=== PATIENT | male | born 1935 | race Caucasian/White ===

== ENCOUNTER 2024-03-28 14:54 | Inpatient (IN) | payer MEDICARE, BC ==
[~2024-03-28] VITALS: Ht 170.2 cm; Wt 88.5 kg
[2024-03-28] MEDS ORDERED: CEFAZOLIN 1 G VIAL ONE (16:33)
[2024-03-28 16:45] LABS: BASOPHILS # (AUTO) 0.1 K/UL (0.0-0.2); BASOPHILS % (AUTO) 0.6 % (0.0-2.0); DIFFERENTIAL COMMENT 0; EOSINOPHILS # (AUTO) 0.3 K/uL (0.0-0.7); EOSINOPHILS % (AUTO) 2.9 % (0.0-7.0); HEMATOCRIT 29.9 % (36.7-47.1); HEMOGLOBIN 9.8 g/dL (12.5-16.3); LYMPHOCYTES # (AUTO) 0.9 K/uL (0.8-4.8); LYMPHOCYTES % (AUTO) 10.5 % (20.5-51.5); MEAN CORPUSCULAR HEMOGLOBIN 31.4 uug (23.8-33.4); MEAN CORPUSCULAR HGB CONC 33 g/dL (32.5-36.3); MEAN CORPUSCULAR VOLUME 96.2 fL (73.0-96.2); MONOCYTES # (AUTO) 0.7 K/uL (0.1-1.30); MONOCYTES % (AUTO) 7.9 % (0.0-11.0); NEUTROPHILS % (AUTO) 78.1 % (38.5-71.5); PLATELET COUNT (AUTO) 311 K/uL (152-348); RED BLOOD CELL COUNT(AUTO) 3.11 MIL/uL (4.06-5.63); RED CELL DISTRIBUTION WIDTH 17.8 % (12.1-16.2)
[2024-03-28] MEDS: CEFAZOLIN 1 G in IV DEXTROSE 5% 50 ML IV ONE (16:50)
[2024-03-28 16:53] LABS: CALCIUM 8.9 mg/dL (8.5-10.1); CARBON DIOXIDE 33 mmol/L (21-32); CHLORIDE 104 mmol/L (98-107); CREATININE 1.5 mg/dL (0.6-1.3); GLUCOSE 183 mg/dL (74-106); POTASSIUM 3.8 mmol/L (3.5-5.1); SODIUM SERUM 143 mmol/L (136-145); UREA NITROGEN, BLOOD 21 mg/dL (7-18)
[2024-03-28 17:06] LABS: ALANINE AMINOTRANSFERASE 35 U/L (16-63); ALBUMIN 2.8 g/dL (3.4-5.0); ALKALINE PHOSPHATASE 119 U/L (50-136); ASPARTATE AMINOTRANSFERASE 17 U/L (15-37); BILIRUBIN,DIRECT 0.2 mg/dL (0.0-0.2); BILIRUBIN,TOTAL 0.4 mg/dL (0.2-1.0); NT-PRO BNP 5264 pg/mL (0-125); TOTAL PROTEIN, SERUM 6.8 g/dL (6.4-8.2)
[2024-03-28] MEDS ORDERED: ACETAMINOPHEN 325 MG TABLET PO PRN (21:30)
[2024-03-28] MEDS ORDERED: DEXTROSE 50% 50 ML DISP.SYRIN IV PRN (21:30)
[2024-03-28] MEDS ORDERED: ONDANSETRON 4 MG/2 ML VIAL IV PRN (21:30)
[2024-03-28 21:44] VITALS: BP 171/59; TEMP 97.9; O2SAT 100
[2024-03-28 23:07] LABS: *BILIRUBIN,URIN NEGATIVE (NEGATIVE); *BLOOD, URINE NEGATIVE (NEGATIVE); *CLARITY,URINE CLEAR (CLEAR); *COLOR,URINE YELLOW (YELLOW); *KETONES,URINE NEGATIVE (NEGATIVE); *PROTEIN,URINE 1+ (NEGATIVE); *UROBILINOGEN,URINE 0.2 E.U./dl (NORMAL); LEUKOCYTE ESTERASE ,URINE NEGATIVE (NEGATIVE); NITRITE, URINE NEGATIVE (NEGATIVE); PH,URINE 5.5 (5.0-8.0); UGLUCOSE NEGATIVE (NEGATIVE)
[2024-03-28] MEDS: HEPARIN SODIUM,PORCINE 5,000 UNITS/ML VIAL SQ SCH (23:07)
[2024-03-28] MEDS: GUAIFENESIN/DEXTROMETHORPHAN 5 ML UDC PO PRN (23:42)
[2024-03-28 23:48] LABS: BACTERIA,URINE FEW /HPF (NONE SEEN); RBC,URINE 0-3 /HPF (0-3); SQUAMOUS EPITHELIAL CELL,UR NONE SEEN /HPF (NONE SEEN); WBC,URINE 0-3 /HPF (0-3)
[2024-03-28 23:49] LABS: CALCIUM OXALATE CRYSTALS,UR MODERATE /HPF (NONE SEEN); URIC ACID CRYSTALS,URINE FEW /HPF (NONE SEEN)
[2024-03-29] VITALS (8 sets, daily range): BP systolic 124–157; BP diastolic 49–57; TEMP 97.9–98.9; O2SAT 94–100
[2024-03-29] MEDS ORDERED: BUMETANIDE 1 MG/4 ML VIAL ONE ×2 (00:21→00:23)
[2024-03-29] MEDS ORDERED: VANCOMYCIN HCL 500 MG VIAL ONE (00:22)
[2024-03-29] MEDS: VANCOMYCIN HCL 1,500 MG in IV DEXTROSE 5% 500 ML IV ONE (00:42)
[2024-03-29] MEDS: BUMETANIDE INJ 3 MG in IV DEXTROSE 5% 38 ML IV ONE (03:01)
[2024-03-29] MEDS: PANTOPRAZOLE SODIUM 40 MG TABLET.DR PO SCH (06:11)
[2024-03-29] MEDS: BLOOD SUGAR DIAGNOSTIC 1 EACH STRIP VI SCH (06:34)
[2024-03-29 07:14] LABS: IRON, SERUM 27 ug/dL (50-175)
[2024-03-29 07:19] LABS: CALCIUM 9.1 mg/dL (8.5-10.1); CARBON DIOXIDE 31 mmol/L (21-32); CHLORIDE 103 mmol/L (98-107); CHOLESTEROL 121 mg/dL (<200); CREATININE 1.5 mg/dL (0.6-1.3); FERRITIN 649 ng/mL (26-388); GLUCOSE 187 mg/dL (74-106); HDL CHOLESTEROL 57 mg/dL (40-60); POTASSIUM 3.9 mmol/L (3.5-5.1); SODIUM SERUM 142 mmol/L (136-145); TRIGLYCERIDES 94 MG/DL (30-150); UREA NITROGEN, BLOOD 21 mg/dL (7-18)
[2024-03-29 07:38] LABS: BASOPHILS # (AUTO) 0.1 K/UL (0.0-0.2); BASOPHILS % (AUTO) 0.6 % (0.0-2.0); DIFFERENTIAL COMMENT 0; EOSINOPHILS # (AUTO) 0.2 K/uL (0.0-0.7); EOSINOPHILS % (AUTO) 2.3 % (0.0-7.0); HEMATOCRIT 30.6 % (36.7-47.1); HEMOGLOBIN 10.2 g/dL (12.5-16.3); LYMPHOCYTES # (AUTO) 1.3 K/uL (0.8-4.8); LYMPHOCYTES % (AUTO) 12.3 % (20.5-51.5); MEAN CORPUSCULAR HGB CONC 33 g/dL (32.5-36.3); MEAN CORPUSCULAR VOLUME 96.3 fL (73.0-96.2); MONOCYTES # (AUTO) 0.9 K/uL (0.1-1.30); MONOCYTES % (AUTO) 8.8 % (0.0-11.0); NEUTROPHILS # (AUTO) 8.2 K/uL (1.8-8.9); PLATELET COUNT (AUTO) 344 K/uL (152-348); RED BLOOD CELL COUNT(AUTO) 3.18 MIL/uL (4.06-5.63); RED CELL DISTRIBUTION WIDTH 17.1 % (12.1-16.2); WHITE BLOOD COUNT (AUTO) 10.7 K/uL (3.6-10.2)
[2024-03-29] MEDS: INSULIN REGULAR, HUMAN 1000 UNIT/10 ML VIAL SQ PRN (08:00)
[2024-03-29] MEDS: FUROSEMIDE 40 MG/4 ML VIAL IV SCH (09:32)
[2024-03-29] MEDS: CLOPIDOGREL 75 MG TABLET PO SCH (09:32)
[2024-03-29] MEDS: ASPIRIN 81 MG TAB.CHEW PO SCH (09:32)
[2024-03-29] MEDS ORDERED: BLOO-360 IN (16:04)
[2024-03-29] MEDS ORDERED: ASCO-375 PO (16:04)
[2024-03-29] MEDS ORDERED: ASPI-1101 PO (16:05)
[2024-03-29] MEDS ORDERED: CLOP75TA33 PO (16:06)
[2024-03-29] MEDS ORDERED: CHOL400T32 PO (16:06)
[2024-03-29] MEDS ORDERED: CYAN-51 PO (16:07)
[2024-03-29] MEDS ORDERED: GUAI5SYR PO (16:08)
[2024-03-29] MEDS ORDERED: FERR325T6 PO (16:09)
[2024-03-29] MEDS ORDERED: FLUT16SP NS (16:10)
[2024-03-29] MEDS ORDERED: FOLI0.4T6 PO (16:11)
[2024-03-29] MEDS ORDERED: METO25TA6 PO (16:12)
[2024-03-29] MEDS ORDERED: BUDE1AMP2 IH (16:13)
[2024-03-29] MEDS ORDERED: IPRA3AMP23 IH (16:15)
[2024-03-29] MEDS ORDERED: ROPI0.5T4 PO (16:16)
[2024-03-29] MEDS ORDERED: MONT10TA22 PO (16:17)
[2024-03-29] MEDS ORDERED: ROSU5TAB PO (16:17)
[2024-03-29] MEDS ORDERED: PANT40TA49 PO (16:18)
[2024-03-29] MEDS ORDERED: POTA10TA21 PO (16:19)
[2024-03-29] MEDS ORDERED: BUDE90AE IH (16:20)
[2024-03-29] MEDS ORDERED: INSU3INS6 SQ ×2 (16:23→16:24)
[2024-03-29] MEDS ORDERED: TIRZEPATIDE SQ (16:23)
[2024-03-29] MEDS ORDERED: BENZ-13 PO (16:25)
[2024-03-29] MEDS ORDERED: GUAI600T53 PO (16:25)
[2024-03-29] MEDS ORDERED: FURO20TA4 PO (16:28)
[2024-03-29] MEDS ORDERED: AMIO100T4 PO (16:29)
[2024-03-29] MEDS ORDERED: ALBUTEROL SULFATE 8 GM HFA.AER.AD IH PRN (17:15)
[2024-03-29] MEDS: MONTELUKAST SODIUM 10 MG TABLET PO SCH (19:03)
[2024-03-29] MEDS: FLUTICASONE PROP NASAL SPRAY 16 GM BOTTLE NS SCH (19:03)
[2024-03-29] MEDS: MUPIROCIN 2% OINT 22 GM TUBE NS SCH (21:09)
[2024-03-29] MEDS: ATORVASTATIN 10 MG TABLET PO SCH (21:09)
[2024-03-29] MEDS: METOPROLOL TARTRATE 25 MG TABLET PO SCH (21:10)
[2024-03-30] VITALS (7 sets, daily range): BP systolic 121–152; BP diastolic 50–89; TEMP 97.6–98.1; O2SAT 92–100
[2024-03-30] MEDS: VANCOMYCIN IV 1,250 MG in IV DEXTROSE 5% 250 ML IV SCH (02:43)
[2024-03-30 06:15] LABS: ABG BASE EXCESS 8.8 mmol/L (-2.0-3.0); ABG HCO3 33.4 mmol/L (21.0-28.0); ABG PCO2 46.4 mmHg (35.0-48.0); ABG PH 7.475 (7.350-7.450); ABG PO2 52.3 mmHg (83.0-108.0); ABG SITE RIGHT RADIAL; ABG TOTAL HEMOGLOBIN 10.3 G/dL (13.5-17.5); AaDO2 88.9 mmHg; COHb 0.3 % (0.5-1.5); O2Hb 87.9 % (94.0-98.0)
[2024-03-30 06:47] LABS: BASOPHILS # (AUTO) 0.1 K/UL (0.0-0.2); BASOPHILS % (AUTO) 0.7 % (0.0-2.0); EOSINOPHILS # (AUTO) 0.3 K/uL (0.0-0.7); EOSINOPHILS % (AUTO) 3.1 % (0.0-7.0); HEMOGLOBIN 9.4 g/dL (12.5-16.3); LYMPHOCYTES % (AUTO) 11.5 % (20.5-51.5); MEAN CORPUSCULAR HGB CONC 34 g/dL (32.5-36.3); MEAN CORPUSCULAR VOLUME 94.9 fL (73.0-96.2); MONOCYTES # (AUTO) 0.8 K/uL (0.1-1.30); MONOCYTES % (AUTO) 8.5 % (0.0-11.0); NEUTROPHILS # (AUTO) 6.9 K/uL (1.8-8.9); NEUTROPHILS % (AUTO) 76.2 % (38.5-71.5); PLATELET COUNT (AUTO) 371 K/uL (152-348); RED BLOOD CELL COUNT(AUTO) 2.96 MIL/uL (4.06-5.63); RED CELL DISTRIBUTION WIDTH 16.9 % (12.1-16.2)
[2024-03-30 07:01] LABS: CALCIUM 8.9 mg/dL (8.5-10.1); CARBON DIOXIDE 36 mmol/L (21-32); CHLORIDE 100 mmol/L (98-107); CREATININE 1.7 mg/dL (0.6-1.3); GLUCOSE 200 mg/dL (74-106); MAGNESIUM 1.6 mg/dL (1.8-2.4); PHOSPHOROUS 3.3 mg/dL (2.5-4.9); POTASSIUM 2.9 mmol/L (3.5-5.1); SODIUM SERUM 140 mmol/L (136-145); UREA NITROGEN, BLOOD 20 mg/dL (7-18)
[2024-03-30 07:02] LABS: DIFFERENTIAL COMMENT 1
[2024-03-30] MEDS: AMIODARONE HCL 200 MG TABLET PO SCH (08:31)
[2024-03-30] MEDS: FOLIC ACID 1 MG TABLET PO SCH (08:32)
[2024-03-30] MEDS: FERROUS SULFATE 325 MG TABEC PO SCH (09:20)
[2024-03-30] MEDS: ASCORBIC ACID 500 MG TABLET PO SCH (09:20)
[2024-03-30] MEDS: POTASSIUM CHLORIDE 50 ML IV SCH (09:23)
[2024-03-30] MEDS: MAGNESIUM SULFATE/D5W 100 ML IV SCH (09:24)
[2024-03-30] MEDS: POTASSIUM CHLORIDE 20 MEQ POWDER PACKET GT ONE (10:58)
[2024-03-30] MEDS ORDERED: Medication Not On Formulary EA (Ferrous Sulfate 325 MG) PO SCH (18:00)
[2024-03-30] MEDS: CHOLECALCIFEROL 400 UNITS TABLET PO SCH (18:37)
[2024-03-30] MEDS: CYANOCOBALAMIN 1,000 MCG TABLET PO SCH (18:39)
[2024-03-31] VITALS (8 sets, daily range): BP systolic 112–149; BP diastolic 45–67; TEMP 97.9–98.4; O2SAT 92–98
[2024-03-31 07:13] LABS: CALCIUM 8.8 mg/dL (8.5-10.1); CARBON DIOXIDE 36 mmol/L (21-32); CHLORIDE 99 mmol/L (98-107); CREATININE 1.8 mg/dL (0.6-1.3); GLUCOSE 224 mg/dL (74-106); MAGNESIUM 2.1 mg/dL (1.8-2.4); PHOSPHOROUS 3.5 mg/dL (2.5-4.9); POTASSIUM 3.2 mmol/L (3.5-5.1); SODIUM SERUM 139 mmol/L (136-145); UREA NITROGEN, BLOOD 24 mg/dL (7-18)
[2024-03-31 07:25] LABS: BASOPHILS # (AUTO) 0.1 K/UL (0.0-0.2); BASOPHILS % (AUTO) 0.9 % (0.0-2.0); DIFFERENTIAL COMMENT 0; EOSINOPHILS # (AUTO) 0.3 K/uL (0.0-0.7); EOSINOPHILS % (AUTO) 4.1 % (0.0-7.0); HEMATOCRIT 28.7 % (36.7-47.1); HEMOGLOBIN 9.5 g/dL (12.5-16.3); LYMPHOCYTES # (AUTO) 1.1 K/uL (0.8-4.8); MEAN CORPUSCULAR HEMOGLOBIN 31.8 uug (23.8-33.4); MEAN CORPUSCULAR HGB CONC 33 g/dL (32.5-36.3); MEAN CORPUSCULAR VOLUME 95.5 fL (73.0-96.2); MONOCYTES # (AUTO) 0.8 K/uL (0.1-1.30); MONOCYTES % (AUTO) 10.4 % (0.0-11.0); NEUTROPHILS # (AUTO) 5.6 K/uL (1.8-8.9); NEUTROPHILS % (AUTO) 70.6 % (38.5-71.5); PLATELET COUNT (AUTO) 419 K/uL (152-348); RED CELL DISTRIBUTION WIDTH 16.9 % (12.1-16.2); WHITE BLOOD COUNT (AUTO) 7.9 K/uL (3.6-10.2)
[2024-03-31] MEDS: POTASSIUM CHLORIDE 20 MEQ TAB.PRT.SR PO ONE (09:43)
[2024-03-31] MEDS ORDERED: BENZONATATE 100 MG CAPSULE PO PRN (14:45)
[2024-04-01] VITALS (8 sets, daily range): BP systolic 120–149; BP diastolic 50–63; TEMP 97.6–98.1; O2SAT 94–100
[2024-04-01 06:21] LABS: BASOPHILS # (AUTO) 0.1 K/UL (0.0-0.2); BASOPHILS % (AUTO) 1.3 % (0.0-2.0); EOSINOPHILS # (AUTO) 0.4 K/uL (0.0-0.7); EOSINOPHILS % (AUTO) 5.5 % (0.0-7.0); HEMOGLOBIN 9.4 g/dL (12.5-16.3); LYMPHOCYTES # (AUTO) 1.1 K/uL (0.8-4.8); LYMPHOCYTES % (AUTO) 16.5 % (20.5-51.5); MEAN CORPUSCULAR HEMOGLOBIN 31.7 uug (23.8-33.4); MEAN CORPUSCULAR HGB CONC 34 g/dL (32.5-36.3); MEAN CORPUSCULAR VOLUME 94.7 fL (73.0-96.2); MONOCYTES # (AUTO) 0.8 K/uL (0.1-1.30); NEUTROPHILS # (AUTO) 4.4 K/uL (1.8-8.9); NEUTROPHILS % (AUTO) 64.7 % (38.5-71.5); PLATELET COUNT (AUTO) 451 K/uL (152-348); RED BLOOD CELL COUNT(AUTO) 2.95 MIL/uL (4.06-5.63); RED CELL DISTRIBUTION WIDTH 16.9 % (12.1-16.2); WHITE BLOOD COUNT (AUTO) 6.8 K/uL (3.6-10.2)
[2024-04-01 06:50] LABS: CALCIUM 9.3 mg/dL (8.5-10.1); CARBON DIOXIDE 36 mmol/L (21-32); CHLORIDE 97 mmol/L (98-107); CREATININE 1.8 mg/dL (0.6-1.3); GLUCOSE 201 mg/dL (74-106); MAGNESIUM 1.8 mg/dL (1.8-2.4); PHOSPHOROUS 4.9 mg/dL (2.5-4.9); POTASSIUM 3.2 mmol/L (3.5-5.1); SODIUM SERUM 137 mmol/L (136-145); UREA NITROGEN, BLOOD 27 mg/dL (7-18); VANCOMYCIN,TROUGH 15.5 ug/mL (10.0-20.0)
[2024-04-01 07:28] LABS: DIFFERENTIAL COMMENT 1
[2024-04-01] MEDS: POTASSIUM CHLORIDE 20 MEQ TAB.PRT.SR PO ONE (08:38)
[2024-04-01] MEDS: ACETAzolamide 250 MG TABLET PO SCH (09:35)
[2024-04-01] MEDS: ALBUTEROL SULFATE 2.5 MG/3 ML NEBU NEB PRN (13:51)
[2024-04-02] VITALS (12 sets, daily range): BP systolic 114–138; BP diastolic 43–54; TEMP 98.2–98.9; O2SAT 61–99
[2024-04-02 07:17] LABS: BASOPHILS # (AUTO) 0.1 K/UL (0.0-0.2); BASOPHILS % (AUTO) 1.1 % (0.0-2.0); EOSINOPHILS # (AUTO) 0.4 K/uL (0.0-0.7); EOSINOPHILS % (AUTO) 6.5 % (0.0-7.0); HEMATOCRIT 27.3 % (36.7-47.1); HEMOGLOBIN 9.1 g/dL (12.5-16.3); LYMPHOCYTES # (AUTO) 1.2 K/uL (0.8-4.8); LYMPHOCYTES % (AUTO) 19.6 % (20.5-51.5); MEAN CORPUSCULAR HEMOGLOBIN 31.6 uug (23.8-33.4); MEAN CORPUSCULAR HGB CONC 33 g/dL (32.5-36.3); MEAN CORPUSCULAR VOLUME 95.1 fL (73.0-96.2); MONOCYTES # (AUTO) 0.8 K/uL (0.1-1.30); MONOCYTES % (AUTO) 13.2 % (0.0-11.0); NEUTROPHILS # (AUTO) 3.6 K/uL (1.8-8.9); NEUTROPHILS % (AUTO) 59.6 % (38.5-71.5); PLATELET COUNT (AUTO) 488 K/uL (152-348); RED BLOOD CELL COUNT(AUTO) 2.87 MIL/uL (4.06-5.63)
[2024-04-02 07:32] LABS: DIFFERENTIAL COMMENT 1
[2024-04-02 07:37] LABS: CALCIUM 9.2 mg/dL (8.5-10.1); CARBON DIOXIDE 33 mmol/L (21-32); CHLORIDE 99 mmol/L (98-107); CREATININE 1.8 mg/dL (0.6-1.3); GLUCOSE 169 mg/dL (74-106); MAGNESIUM 2.1 mg/dL (1.8-2.4); PHOSPHOROUS 3.8 mg/dL (2.5-4.9); POTASSIUM 3.3 mmol/L (3.5-5.1); SODIUM SERUM 139 mmol/L (136-145); UREA NITROGEN, BLOOD 26 mg/dL (7-18)
[2024-04-02] MEDS: POTASSIUM CHLORIDE 10 MEQ TAB.PRT.SR PO ONE (08:59)
[2024-04-02] MEDS ORDERED: MUPIROCIN 2% OINT 22 GM TUBE ONE (20:34)
[2024-04-03] VITALS (8 sets, daily range): BP systolic 104–147; BP diastolic 42–61; TEMP 97.9–99.5; O2SAT 94–99
[2024-04-03 07:09] LABS: CALCIUM 9.7 mg/dL (8.5-10.1); CARBON DIOXIDE 34 mmol/L (21-32); CHLORIDE 99 mmol/L (98-107); CREATININE 1.9 mg/dL (0.6-1.3); GLUCOSE 199 mg/dL (74-106); MAGNESIUM 1.8 mg/dL (1.8-2.4); PHOSPHOROUS 4.3 mg/dL (2.5-4.9); POTASSIUM 3.7 mmol/L (3.5-5.1); SODIUM SERUM 138 mmol/L (136-145); UREA NITROGEN, BLOOD 29 mg/dL (7-18)
[2024-04-03 07:14] LABS: BASOPHILS # (AUTO) 0.1 K/UL (0.0-0.2); BASOPHILS % (AUTO) 0.8 % (0.0-2.0); EOSINOPHILS # (AUTO) 0.3 K/uL (0.0-0.7); EOSINOPHILS % (AUTO) 5.2 % (0.0-7.0); HEMATOCRIT 26.9 % (36.7-47.1); LYMPHOCYTES # (AUTO) 1.3 K/uL (0.8-4.8); LYMPHOCYTES % (AUTO) 18.7 % (20.5-51.5); MEAN CORPUSCULAR HEMOGLOBIN 31.7 uug (23.8-33.4); MEAN CORPUSCULAR HGB CONC 33 g/dL (32.5-36.3); MEAN CORPUSCULAR VOLUME 94.9 fL (73.0-96.2); MONOCYTES % (AUTO) 14.2 % (0.0-11.0); NEUTROPHILS # (AUTO) 4.1 K/uL (1.8-8.9); NEUTROPHILS % (AUTO) 61.1 % (38.5-71.5); PLATELET COUNT (AUTO) 534 K/uL (152-348); RED BLOOD CELL COUNT(AUTO) 2.83 MIL/uL (4.06-5.63); RED CELL DISTRIBUTION WIDTH 16.9 % (12.1-16.2); WHITE BLOOD COUNT (AUTO) 6.7 K/uL (3.6-10.2)
[2024-04-03 07:15] LABS: DIFFERENTIAL COMMENT 1
[2024-04-03] MEDS: BUMETANIDE 1 MG TABLET PO SCH (09:07)
[2024-04-03] MEDS ORDERED: BENZOCAINE/MENTH/CETYLPYRD LOZENGE MM PRN (10:00)
[2024-04-03] MEDS: POTASSIUM CHLORIDE 20 MEQ TAB.PRT.SR PO ONE (10:34)
[2024-04-03] MEDS: VANCOMYCIN IV 1,250 MG in IV DEXTROSE 5% 250 ML IV SCH (16:06)
[2024-04-04 00:21] VITALS: BP 127/50; TEMP 98.4; O2SAT 97
[2024-04-04 04:30] VITALS: BP 135/53; TEMP 97.9; O2SAT 99
[2024-04-04 07:35] VITALS: BP 131/47; TEMP 97.7; O2SAT 97
[2024-04-04 07:47] LABS: BASOPHILS # (AUTO) 0.1 K/UL (0.0-0.2); BASOPHILS % (AUTO) 1.1 % (0.0-2.0); EOSINOPHILS # (AUTO) 0.4 K/uL (0.0-0.7); EOSINOPHILS % (AUTO) 5.7 % (0.0-7.0); HEMATOCRIT 25.6 % (36.7-47.1); HEMOGLOBIN 8.8 g/dL (12.5-16.3); LYMPHOCYTES # (AUTO) 1.1 K/uL (0.8-4.8); LYMPHOCYTES % (AUTO) 16.5 % (20.5-51.5); MEAN CORPUSCULAR HEMOGLOBIN 32.5 uug (23.8-33.4); MEAN CORPUSCULAR HGB CONC 34 g/dL (32.5-36.3); MEAN CORPUSCULAR VOLUME 94.8 fL (73.0-96.2); MONOCYTES # (AUTO) 0.9 K/uL (0.1-1.30); MONOCYTES % (AUTO) 14.5 % (0.0-11.0); NEUTROPHILS # (AUTO) 4.1 K/uL (1.8-8.9); NEUTROPHILS % (AUTO) 62.2 % (38.5-71.5); PLATELET COUNT (AUTO) 498 K/uL (152-348); RED CELL DISTRIBUTION WIDTH 16.9 % (12.1-16.2); WHITE BLOOD COUNT (AUTO) 6.6 K/uL (3.6-10.2)
[2024-04-04 07:53] LABS: DIFFERENTIAL COMMENT 1
[2024-04-04 08:10] LABS: CALCIUM 8.9 mg/dL (8.5-10.1); CARBON DIOXIDE 33 mmol/L (21-32); CHLORIDE 101 mmol/L (98-107); CREATININE 1.9 mg/dL (0.6-1.3); GLUCOSE 205 mg/dL (74-106); PHOSPHOROUS 4.2 mg/dL (2.5-4.9); POTASSIUM 3.3 mmol/L (3.5-5.1); SODIUM SERUM 142 mmol/L (136-145); UREA NITROGEN, BLOOD 27 mg/dL (7-18)
[2024-04-04] MEDS: SILDENAFIL 20 MG TABLET PO SCH (09:39)
[2024-04-04] MEDS: POTASSIUM CHLORIDE 20 MEQ TAB.PRT.SR PO ONE (09:39)
[2024-04-04 11:35] VITALS: BP 138/53; TEMP 97.5; O2SAT 94
[2024-04-04 15:45] VITALS: BP 123/44; TEMP 97.9; O2SAT 100
[2024-04-04 20:00] VITALS: BP 123/54; TEMP 98.6; O2SAT 96
[2024-04-05 05:09] LABS: ABG BASE EXCESS 4.6 mmol/L (-2.0-3.0); ABG HCO3 29.5 mmol/L (21.0-28.0); ABG PCO2 45.3 mmHg (35.0-48.0); ABG PH 7.431 (7.350-7.450); ABG PO2 65.4 mmHg (83.0-108.0); ABG SITE RIGHT RADIAL; ABG TOTAL HEMOGLOBIN 10.4 G/dL (13.5-17.5); AaDO2 93.3 mmHg; COHb 0.1 % (0.5-1.5); MetHb 0.2 % (0.0-1.5); O2Hb 92.6 % (94.0-98.0)
[2024-04-05 05:54] VITALS: BP 126/60; TEMP 98; O2SAT 98
[2024-04-05 06:37] LABS: BASOPHILS # (AUTO) 0.1 K/UL (0.0-0.2); BASOPHILS % (AUTO) 1.3 % (0.0-2.0); EOSINOPHILS # (AUTO) 0.4 K/uL (0.0-0.7); EOSINOPHILS % (AUTO) 5.2 % (0.0-7.0); HEMATOCRIT 27.7 % (36.7-47.1); HEMOGLOBIN 9.2 g/dL (12.5-16.3); LYMPHOCYTES # (AUTO) 1.1 K/uL (0.8-4.8); LYMPHOCYTES % (AUTO) 15.1 % (20.5-51.5); MEAN CORPUSCULAR HGB CONC 33 g/dL (32.5-36.3); MEAN CORPUSCULAR VOLUME 99.4 fL (73.0-96.2); MONOCYTES % (AUTO) 14.4 % (0.0-11.0); NEUTROPHILS # (AUTO) 4.6 K/uL (1.8-8.9); PLATELET COUNT (AUTO) 509 K/uL (152-348); RED BLOOD CELL COUNT(AUTO) 2.78 MIL/uL (4.06-5.63); RED CELL DISTRIBUTION WIDTH 17.6 % (12.1-16.2); WHITE BLOOD COUNT (AUTO) 7.1 K/uL (3.6-10.2)
[2024-04-05 06:56] LABS: CALCIUM 9.4 mg/dL (8.5-10.1); CARBON DIOXIDE 33 mmol/L (21-32); CHLORIDE 101 mmol/L (98-107); CREATININE 1.9 mg/dL (0.6-1.3); GLUCOSE 203 mg/dL (74-106); MAGNESIUM 1.8 mg/dL (1.8-2.4); PHOSPHOROUS 3.8 mg/dL (2.5-4.9); POTASSIUM 3.4 mmol/L (3.5-5.1); SODIUM SERUM 141 mmol/L (136-145); UREA NITROGEN, BLOOD 27 mg/dL (7-18)
[2024-04-05 07:02] LABS: DIFFERENTIAL COMMENT 1
[2024-04-05 08:08] VITALS: BP 149/46; TEMP 98.1
[2024-04-05] MEDS ORDERED: POTASSIUM CHLORIDE 20 MEQ POWDER PACKET GT ONE (08:15)
[2024-04-05] MEDS ORDERED: POTASSIUM CHLORIDE 20 MEQ TAB.PRT.SR PO ONE (09:00)
[2024-04-05 09:16] VITALS: BP 149/46
[2024-04-05] MEDS: POTASSIUM CHLORIDE 20 MEQ TAB.PRT.SR PO ONE (09:16)
[2024-04-05] MEDS ORDERED: FLUT16SP16 NS (11:10)
[2024-04-05] MEDS ORDERED: VANC1.257 IV (11:10)
[2024-04-05] MEDS ORDERED: ACET250T9 PO (11:10)
[2024-04-05] MEDS ORDERED: BUME1TAB8 PO (11:10)
[2024-04-05] MEDS ORDERED: HEPA50007 SQ (11:10)
[2024-04-05] MEDS ORDERED: SILD20TA PO (11:10)
[2024-04-05] MEDS ORDERED: METO25TA6 PO (11:10)
[2024-04-05] MEDS: SILDENAFIL 20 MG TABLET PO SCH (14:05)
== END 2024-04-05 14:24 | DRG 280 ==
LOC: ER 14:54 → TELE3 21:17 → MEDSURG3 04-04 10:10
PROVIDERS: ADMIT Nurse Practitioner Family; ATTEND Nurse Practitioner Acute Care
PROC: 05HB33Z Insertion of Infusion Device into Right Basilic Vein, Percutaneous Approach (ICD-10-PCS; principal; 2024-03-30)
DX: I13.0 Hypertensive heart and chronic kidney disease with heart failure and stage 1 through stage 4 chronic kidney disease, or unspecified chronic kidney disease (principal); I50.43 Acute on chronic combined systolic (congestive) and diastolic (congestive) heart failure; I21.A1 Myocardial infarction type 2; L03.116 Cellulitis of left lower limb; N17.9 Acute kidney failure, unspecified; L03.115 Cellulitis of right lower limb; I42.9 Cardiomyopathy, unspecified; I50.9 Heart failure, unspecified; I48.0 Paroxysmal atrial fibrillation; R23.8 Other skin changes; I27.21 Secondary pulmonary arterial hypertension; I25.10 Atherosclerotic heart disease of native coronary artery without angina pectoris; Z95.5 Presence of coronary angioplasty implant and graft; Z95.0 Presence of cardiac pacemaker; K21.9 Gastro-esophageal reflux disease without esophagitis; E11.621 Type 2 diabetes mellitus with foot ulcer; L97.521 Non-pressure chronic ulcer of other part of left foot limited to breakdown of skin; E11.51 Type 2 diabetes mellitus with diabetic peripheral angiopathy without gangrene; E11.40 Type 2 diabetes mellitus with diabetic neuropathy, unspecified; R60.0 Localized edema; E78.5 Hyperlipidemia, unspecified; Z86.16 Personal history of COVID-19; Z87.442 Personal history of urinary calculi; Z91.018 Allergy to other foods; Z79.4 Long term (current) use of insulin; G47.33 Obstructive sleep apnea (adult) (pediatric); E66.9 Obesity, unspecified; Z68.30 Body mass index [BMI] 30.0-30.9, adult; Z71.3 Dietary counseling and surveillance; J45.909 Unspecified asthma, uncomplicated; I35.0 Nonrheumatic aortic (valve) stenosis; N20.0 Calculus of kidney; R09.02 Hypoxemia; K57.30 Diverticulosis of large intestine without perforation or abscess without bleeding; Z86.718 Personal history of other venous thrombosis and embolism; Z79.02 Long term (current) use of antithrombotics/antiplatelets; E11.22 Type 2 diabetes mellitus with diabetic chronic kidney disease; D63.1 Anemia in chronic kidney disease
CPT/HCPCS: 36415; 36600; 71045; 71250; 82785; 82803; 83550; 83735; 84100; 84443; 84484; 85025; 93005; 93307; 94640; 94664; 94760; A4663; G0378; J0690; J1644; J1815; J1940; J3370; J3371; J3475; J3480; J3490; J3535; J7040; J7050; J7060; J8499

== ENCOUNTER 2024-04-05 14:43 | Inpatient (IN) | payer MEDICARE, BC ==
[~2024-04-05] VITALS: Ht 170.2 cm; Wt 88.0 kg
[~2024-04-05 14:43] MED LIST: ACET250T9 PO; AMIO100T4 PO; ASCO-375 PO; ASPI-1101 PO; BENZ-13 PO; BLOO-360 IN; BUDE1AMP2 IH; BUDE90AE IH; BUME1TAB8 PO; CHOL400T32 PO; CLOP75TA33 PO; CYAN-51 PO; FERR325T6 PO; FLUT16SP NS; FLUT16SP16 NS; FOLI0.4T6 PO; FURO20TA4 PO; GUAI5SYR PO; GUAI600T53 PO; HEPA50007 SQ; INSU3INS6 SQ; IPRA3AMP23 IH; METO25TA6 PO; MONT10TA22 PO; PANT40TA49 PO; POTA10TA21 PO; ROPI0.5T4 PO; ROSU5TAB PO; SILD20TA PO; TIRZEPATIDE SQ; VANC1.257 IV
[2024-04-05] MEDS ORDERED: REMEDY ESSENTIAL ZINC PASTE 113 GM TOP PRN (16:30)
[2024-04-05 17:59] VITALS: BP 148/57; TEMP 97.9; O2SAT 98
[2024-04-05 20:20] VITALS: BP 128/53; TEMP 98.4; O2SAT 96
[2024-04-05] MEDS ORDERED: VANCOMYCIN IV 1,250 MG in IV NORMAL SALINE 250 ML IV SCH (21:30)
[2024-04-05] MEDS ORDERED: INSULIN GLARGINE,HUM 300 UNITS/3 ML CARTRIDGE SQ SCH (21:30)
[2024-04-05] MEDS: SILDENAFIL 20 MG TABLET PO SCH (22:14)
[2024-04-05] MEDS: HEPARIN SODIUM,PORCINE 5,000 UNITS/ML VIAL SQ SCH (22:18)
[2024-04-05] MEDS: GUAIFENESIN/DEXTROMETHORPHAN 5 ML UDC PO PRN (23:13)
[2024-04-06] VITALS (8 sets, daily range): BP systolic 134–145; BP diastolic 49–55; TEMP 97.6–98; O2SAT 92–100
[2024-04-06] MEDS: PANTOPRAZOLE SODIUM 40 MG TABLET.DR PO SCH (06:13)
[2024-04-06] MEDS: BUDESONIDE 0.5 MG/2 ML NEBU NEB SCH (09:21)
[2024-04-06] MEDS: ASCORBIC ACID 500 MG TABLET PO SCH (10:30)
[2024-04-06] MEDS: POTASSIUM CHLORIDE 10 MEQ TAB.PRT.SR PO SCH (10:30)
[2024-04-06] MEDS: FERROUS SULFATE 325 MG TABEC PO SCH (10:30)
[2024-04-06] MEDS: BUMETANIDE 1 MG TABLET PO SCH (10:30)
[2024-04-06] MEDS: METOPROLOL TARTRATE 25 MG TABLET PO SCH (10:30)
[2024-04-06] MEDS: CLOPIDOGREL 75 MG TABLET PO SCH (10:31)
[2024-04-06] MEDS: ACETAzolamide 250 MG TABLET PO SCH (10:31)
[2024-04-06] MEDS: ASPIRIN EC 81 MG TABLET.DR PO SCH (10:31)
[2024-04-06] MEDS: FLUTICASONE PROP NASAL SPRAY 16 GM BOTTLE NS SCH (11:24)
[2024-04-06] MEDS: INSULIN GLARGINE,HUM 300 UNITS/3 ML CARTRIDGE SQ SCH ×2 (11:29→21:40)
[2024-04-06] MEDS ORDERED: DEXTROSE 50% 50 ML DISP.SYRIN IV PRN (11:45)
[2024-04-06 12:32] LABS: BASOPHILS # (AUTO) 0.1 K/UL (0.0-0.2); BASOPHILS % (AUTO) 1.1 % (0.0-2.0); EOSINOPHILS # (AUTO) 0.2 K/uL (0.0-0.7); EOSINOPHILS % (AUTO) 2.3 % (0.0-7.0); HEMOGLOBIN 9.2 g/dL (12.5-16.3); MEAN CORPUSCULAR HEMOGLOBIN 31.3 uug (23.8-33.4); MEAN CORPUSCULAR HGB CONC 33 g/dL (32.5-36.3); MEAN CORPUSCULAR VOLUME 95.2 fL (73.0-96.2); MONOCYTES # (AUTO) 1.1 K/uL (0.1-1.30); MONOCYTES % (AUTO) 12.4 % (0.0-11.0); NEUTROPHILS # (AUTO) 6.2 K/uL (1.8-8.9); NEUTROPHILS % (AUTO) 72.2 % (38.5-71.5); PLATELET COUNT (AUTO) 532 K/uL (152-348); RED BLOOD CELL COUNT(AUTO) 2.94 MIL/uL (4.06-5.63); RED CELL DISTRIBUTION WIDTH 17.3 % (12.1-16.2); WHITE BLOOD COUNT (AUTO) 8.7 K/uL (3.6-10.2)
[2024-04-06 12:48] LABS: DIFFERENTIAL COMMENT 1
[2024-04-06 12:51] LABS: CALCIUM 9.4 mg/dL (8.5-10.1); CARBON DIOXIDE 31 mmol/L (21-32); CHLORIDE 99 mmol/L (98-107); CREATININE 1.9 mg/dL (0.6-1.3); GLUCOSE 277 mg/dL (74-106); POTASSIUM 3.3 mmol/L (3.5-5.1); SODIUM SERUM 140 mmol/L (136-145); UREA NITROGEN, BLOOD 36 mg/dL (7-18)
[2024-04-06] MEDS: INSULIN REGULAR, HUMAN 1000 UNIT/10 ML VIAL SQ PRN (13:26)
[2024-04-06] MEDS: BLOOD SUGAR DIAGNOSTIC 1 EACH STRIP VI SCH (17:15)
[2024-04-06] MEDS: CYANOCOBALAMIN 1,000 MCG TABLET PO SCH (17:42)
[2024-04-06] MEDS: CHOLECALCIFEROL 400 UNITS TABLET PO SCH (17:42)
[2024-04-06] MEDS: ATORVASTATIN 40 MG TABLET PO SCH (21:26)
[2024-04-06] MEDS: MONTELUKAST SODIUM 10 MG TABLET PO SCH (21:26)
[2024-04-06] MEDS: FOLIC ACID 0.4 MG TABLET PO SCH (21:32)
[2024-04-06] MEDS: INSULIN REGULAR, HUMAN 300 UNITS/3 ML VIAL SQ PRN (21:58)
[2024-04-07] VITALS (8 sets, daily range): BP systolic 126–140; BP diastolic 49–76; TEMP 97.6–97.8; O2SAT 94–99
[2024-04-07 07:02] LABS: BASOPHILS # (AUTO) 0.1 K/UL (0.0-0.2); BASOPHILS % (AUTO) 0.9 % (0.0-2.0); DIFFERENTIAL COMMENT 0; EOSINOPHILS # (AUTO) 0.2 K/uL (0.0-0.7); EOSINOPHILS % (AUTO) 2.5 % (0.0-7.0); HEMATOCRIT 26.2 % (36.7-47.1); HEMOGLOBIN 8.9 g/dL (12.5-16.3); LYMPHOCYTES # (AUTO) 1.1 K/uL (0.8-4.8); LYMPHOCYTES % (AUTO) 11.8 % (20.5-51.5); MEAN CORPUSCULAR HEMOGLOBIN 32.2 uug (23.8-33.4); MEAN CORPUSCULAR HGB CONC 34 g/dL (32.5-36.3); MEAN CORPUSCULAR VOLUME 94.6 fL (73.0-96.2); MONOCYTES # (AUTO) 1.4 K/uL (0.1-1.30); MONOCYTES % (AUTO) 14.9 % (0.0-11.0); NEUTROPHILS # (AUTO) 6.4 K/uL (1.8-8.9); NEUTROPHILS % (AUTO) 69.9 % (38.5-71.5); PLATELET COUNT (AUTO) 480 K/uL (152-348); RED BLOOD CELL COUNT(AUTO) 2.77 MIL/uL (4.06-5.63); RED CELL DISTRIBUTION WIDTH 17.3 % (12.1-16.2); WHITE BLOOD COUNT (AUTO) 9.1 K/uL (3.6-10.2)
[2024-04-07 07:26] LABS: CALCIUM 8.9 mg/dL (8.5-10.1); CARBON DIOXIDE 31 mmol/L (21-32); CHLORIDE 102 mmol/L (98-107); CREATININE 2.1 mg/dL (0.6-1.3); GLUCOSE 172 mg/dL (74-106); MAGNESIUM 1.8 mg/dL (1.8-2.4); SODIUM SERUM 143 mmol/L (136-145); UREA NITROGEN, BLOOD 35 mg/dL (7-18)
[2024-04-07] MEDS: POTASSIUM CHLORIDE 20 MEQ TAB.PRT.SR PO SCH (08:06)
[2024-04-08] VITALS (7 sets, daily range): BP systolic 104–142; BP diastolic 49–59; TEMP 97.6–98.2; O2SAT 94–99
[2024-04-08 08:01] LABS: BASOPHILS # (AUTO) 0.1 K/UL (0.0-0.2); BASOPHILS % (AUTO) 1.1 % (0.0-2.0); EOSINOPHILS # (AUTO) 0.2 K/uL (0.0-0.7); EOSINOPHILS % (AUTO) 2.5 % (0.0-7.0); HEMATOCRIT 28.4 % (36.7-47.1); HEMOGLOBIN 9.5 g/dL (12.5-16.3); LYMPHOCYTES # (AUTO) 1.1 K/uL (0.8-4.8); LYMPHOCYTES % (AUTO) 11.7 % (20.5-51.5); MEAN CORPUSCULAR HEMOGLOBIN 31.9 uug (23.8-33.4); MEAN CORPUSCULAR HGB CONC 33 g/dL (32.5-36.3); MEAN CORPUSCULAR VOLUME 95.6 fL (73.0-96.2); MONOCYTES # (AUTO) 1.5 K/uL (0.1-1.30); MONOCYTES % (AUTO) 15.5 % (0.0-11.0); NEUTROPHILS # (AUTO) 6.5 K/uL (1.8-8.9); NEUTROPHILS % (AUTO) 69.2 % (38.5-71.5); PLATELET COUNT (AUTO) 498 K/uL (152-348); RED BLOOD CELL COUNT(AUTO) 2.97 MIL/uL (4.06-5.63); RED CELL DISTRIBUTION WIDTH 17.6 % (12.1-16.2); WHITE BLOOD COUNT (AUTO) 9.4 K/uL (3.6-10.2)
[2024-04-08 08:05] LABS: DIFFERENTIAL COMMENT 1
[2024-04-08 08:17] LABS: CALCIUM 9.6 mg/dL (8.5-10.1); CARBON DIOXIDE 31 mmol/L (21-32); CHLORIDE 102 mmol/L (98-107); CREATININE 2.1 mg/dL (0.6-1.3); GLUCOSE 165 mg/dL (74-106); PHOSPHOROUS 3.9 mg/dL (2.5-4.9); POTASSIUM 3.4 mmol/L (3.5-5.1); SODIUM SERUM 143 mmol/L (136-145); UREA NITROGEN, BLOOD 33 mg/dL (7-18)
[2024-04-08] MEDS: FOLIC ACID 1 MG TABLET PO SCH (09:17)
[2024-04-08] MEDS: POTASSIUM CHLORIDE 10 MEQ TAB.PRT.SR PO SCH (09:22)
[2024-04-08] MEDS: POTASSIUM CHLORIDE 20 MEQ TAB.PRT.SR PO ONE (09:26)
[2024-04-08 14:37] LABS: BAND % (MANUAL) 6 % (0-10); EOSINOPHILS % (MANUAL) 1 % (0-8); LYMPHOCYTES % (MANUAL) 10 % (20-40); MONOCYTES % (MANUAL) 16 % (2-10); NEUTROPHILS % (MANUAL) 65 % (42-75); REACTIVE LYMPHOCYTES 2 % (0-0)
[2024-04-08 14:38] LABS: ANISOCYTOSIS 1+; PLATELET ESTIMATE ADEQUATE
[2024-04-09] VITALS (8 sets, daily range): BP systolic 115–138; BP diastolic 42–54; TEMP 97.8–98.7; O2SAT 95–100
[2024-04-10 06:56] LABS: BASOPHILS # (AUTO) 0.1 K/UL (0.0-0.2); BASOPHILS % (AUTO) 1.2 % (0.0-2.0); DIFFERENTIAL COMMENT 1; EOSINOPHILS # (AUTO) 0.3 K/uL (0.0-0.7); HEMATOCRIT 27.8 % (36.7-47.1); HEMOGLOBIN 9.4 g/dL (12.5-16.3); LYMPHOCYTES # (AUTO) 1.3 K/uL (0.8-4.8); LYMPHOCYTES % (AUTO) 13.5 % (20.5-51.5); MEAN CORPUSCULAR HEMOGLOBIN 31.8 uug (23.8-33.4); MEAN CORPUSCULAR HGB CONC 34 g/dL (32.5-36.3); MEAN CORPUSCULAR VOLUME 94.4 fL (73.0-96.2); MONOCYTES # (AUTO) 1.5 K/uL (0.1-1.30); MONOCYTES % (AUTO) 16.5 % (0.0-11.0); NEUTROPHILS # (AUTO) 6.1 K/uL (1.8-8.9); NEUTROPHILS % (AUTO) 65.8 % (38.5-71.5); PLATELET COUNT (AUTO) 476 K/uL (152-348); RED BLOOD CELL COUNT(AUTO) 2.95 MIL/uL (4.06-5.63); RED CELL DISTRIBUTION WIDTH 17.3 % (12.1-16.2); WHITE BLOOD COUNT (AUTO) 9.3 K/uL (3.6-10.2)
[2024-04-10 07:24] LABS: CALCIUM 9.7 mg/dL (8.5-10.1); CARBON DIOXIDE 33 mmol/L (21-32); CHLORIDE 100 mmol/L (98-107); CREATININE 2.1 mg/dL (0.6-1.3); GLUCOSE 143 mg/dL (74-106); MAGNESIUM 1.6 mg/dL (1.8-2.4); PHOSPHOROUS 4.3 mg/dL (2.5-4.9); POTASSIUM 3.1 mmol/L (3.5-5.1); SODIUM SERUM 141 mmol/L (136-145); UREA NITROGEN, BLOOD 35 mg/dL (7-18)
[2024-04-10 08:35] VITALS: O2SAT 93
[2024-04-10 08:45] VITALS: O2SAT 99
[2024-04-10 08:57] LABS: ABG HCO3 28.8 mmol/L (21.0-28.0); ABG PCO2 44.2 mmHg (35.0-48.0); ABG PH 7.432 (7.350-7.450); ABG PO2 55.7 mmHg (83.0-108.0); ABG SITE RIGHT RADIAL; ABG TOTAL HEMOGLOBIN 11.1 G/dL (13.5-17.5); AaDO2 89.7 mmHg; COHb 0.1 % (0.5-1.5); MetHb 0.2 % (0.0-1.5); O2Hb 87.7 % (94.0-98.0)
[2024-04-10] MEDS: MAGNESIUM OXIDE 400 MG TABLET PO ONE (10:05)
[2024-04-10] MEDS: POTASSIUM CHLORIDE 10 MEQ TAB.PRT.SR PO ONE (12:12)
[2024-04-10] MEDS: MAGNESIUM OXIDE 400 MG TABLET PO SCH (13:12)
[2024-04-10 15:19] VITALS: BP 127/55; TEMP 98.4; O2SAT 99
[2024-04-10] MEDS: POTASSIUM CHLORIDE 20 MEQ TAB.PRT.SR PO ONE (16:17)
[2024-04-10 20:19] VITALS: O2SAT 95
[2024-04-10 20:29] VITALS: O2SAT 98
[2024-04-11] VITALS (7 sets, daily range): BP systolic 120–124; BP diastolic 42–45; TEMP 98.4–98.8; O2SAT 94–100
[2024-04-11] MEDS: BUMETANIDE 1 MG TABLET PO SCH (08:47)
[2024-04-11] MEDS: CETIRIZINE HCL 10 MG TABLET PO SCH (20:58)
[2024-04-11] MEDS: MUPIROCIN 2% OINT 22 GM TUBE NS SCH (20:58)
[2024-04-11] MEDS ORDERED: MUPIROCIN 2% OINT 22 GM TUBE NS SCH ×2 (21:00)
[2024-04-12] VITALS (7 sets, daily range): BP systolic 116–129; BP diastolic 40–55; TEMP 97.5–98.4; O2SAT 95–100
[2024-04-12 07:01] LABS: BASOPHILS # (AUTO) 0.1 K/UL (0.0-0.2); BASOPHILS % (AUTO) 1.3 % (0.0-2.0); EOSINOPHILS # (AUTO) 0.3 K/uL (0.0-0.7); EOSINOPHILS % (AUTO) 2.9 % (0.0-7.0); HEMATOCRIT 28.6 % (36.7-47.1); HEMOGLOBIN 9.7 g/dL (12.5-16.3); LYMPHOCYTES # (AUTO) 1.6 K/uL (0.8-4.8); LYMPHOCYTES % (AUTO) 15.1 % (20.5-51.5); MEAN CORPUSCULAR HEMOGLOBIN 31.9 uug (23.8-33.4); MEAN CORPUSCULAR HGB CONC 34 g/dL (32.5-36.3); MEAN CORPUSCULAR VOLUME 94.5 fL (73.0-96.2); MONOCYTES # (AUTO) 1.6 K/uL (0.1-1.30); MONOCYTES % (AUTO) 15.4 % (0.0-11.0); NEUTROPHILS % (AUTO) 65.3 % (38.5-71.5); PLATELET COUNT (AUTO) 456 K/uL (152-348); RED BLOOD CELL COUNT(AUTO) 3.03 MIL/uL (4.06-5.63); RED CELL DISTRIBUTION WIDTH 16.9 % (12.1-16.2); WHITE BLOOD COUNT (AUTO) 10.7 K/uL (3.6-10.2)
[2024-04-12 07:12] LABS: DIFFERENTIAL COMMENT 1
[2024-04-12 07:19] LABS: CALCIUM 9.6 mg/dL (8.5-10.1); CARBON DIOXIDE 32 mmol/L (21-32); CHLORIDE 103 mmol/L (98-107); CREATININE 2.1 mg/dL (0.6-1.3); GLUCOSE 144 mg/dL (74-106); MAGNESIUM 1.8 mg/dL (1.8-2.4); PHOSPHOROUS 3.3 mg/dL (2.5-4.9); POTASSIUM 3.1 mmol/L (3.5-5.1); SODIUM SERUM 142 mmol/L (136-145); UREA NITROGEN, BLOOD 30 mg/dL (7-18)
[2024-04-12 09:44] LABS: ANISOCYTOSIS 1+; EOSINOPHILS % (MANUAL) 5 % (0-8); LYMPHOCYTES % (MANUAL) 15 % (20-40); MONOCYTES % (MANUAL) 15 % (2-10); NEUTROPHILS % (MANUAL) 65 % (42-75); PLATELET ESTIMATE INCREASED
[2024-04-12] MEDS: POTASSIUM CHLORIDE 10 MEQ TAB.PRT.SR PO SCH (09:49)
[2024-04-12] MEDS: POTASSIUM CHLORIDE 20 MEQ TAB.PRT.SR PO ONE (13:37)
[2024-04-13 07:03] VITALS: BP 136/53; TEMP 98.4; O2SAT 97
[2024-04-13 07:35] VITALS: O2SAT 97
[2024-04-13 07:45] VITALS: O2SAT 98; O2SAT 99
[2024-04-13 08:29] LABS: BASOPHILS # (AUTO) 0.2 K/UL (0.0-0.2); BASOPHILS % (AUTO) 1.4 % (0.0-2.0); EOSINOPHILS # (AUTO) 0.3 K/uL (0.0-0.7); HEMATOCRIT 28.1 % (36.7-47.1); HEMOGLOBIN 9.3 g/dL (12.5-16.3); LYMPHOCYTES # (AUTO) 1.4 K/uL (0.8-4.8); MEAN CORPUSCULAR HEMOGLOBIN 31.3 uug (23.8-33.4); MEAN CORPUSCULAR HGB CONC 33 g/dL (32.5-36.3); MONOCYTES # (AUTO) 1.7 K/uL (0.1-1.30); MONOCYTES % (AUTO) 14.5 % (0.0-11.0); NEUTROPHILS # (AUTO) 8.1 K/uL (1.8-8.9); NEUTROPHILS % (AUTO) 69.1 % (38.5-71.5); PLATELET COUNT (AUTO) 436 K/uL (152-348); RED BLOOD CELL COUNT(AUTO) 2.99 MIL/uL (4.06-5.63); RED CELL DISTRIBUTION WIDTH 17.3 % (12.1-16.2); WHITE BLOOD COUNT (AUTO) 11.7 K/uL (3.6-10.2)
[2024-04-13 08:39] LABS: CALCIUM 9.4 mg/dL (8.5-10.1); CARBON DIOXIDE 28 mmol/L (21-32); CHLORIDE 102 mmol/L (98-107); GLUCOSE 167 mg/dL (74-106); MAGNESIUM 1.9 mg/dL (1.8-2.4); PHOSPHOROUS 2.5 mg/dL (2.5-4.9); POTASSIUM 3.5 mmol/L (3.5-5.1); SODIUM SERUM 141 mmol/L (136-145); UREA NITROGEN, BLOOD 34 mg/dL (7-18)
[2024-04-13 08:43] LABS: DIFFERENTIAL COMMENT 1
[2024-04-13 19:25] VITALS: O2SAT 98
[2024-04-13 19:36] VITALS: O2SAT 99
[2024-04-13 19:59] VITALS: BP 141/41; TEMP 98.7; O2SAT 95
[2024-04-14 06:39] VITALS: TEMP 97.7
[2024-04-14 07:13] VITALS: O2SAT 97
[2024-04-14 07:26] VITALS: O2SAT 100
[2024-04-14 08:36] VITALS: BP 129/45
== END 2024-04-14 15:00 | disposition home health service (06) | DRG 280 ==
PROVIDERS: ADMIT Physical Medicine & Rehabilitation Pain Medicine; ATTEND Physical Medicine & Rehabilitation Pain Medicine
DX: I13.0 Hypertensive heart and chronic kidney disease with heart failure and stage 1 through stage 4 chronic kidney disease, or unspecified chronic kidney disease (principal); I50.33 Acute on chronic diastolic (congestive) heart failure; I21.A1 Myocardial infarction type 2; L03.115 Cellulitis of right lower limb; L03.116 Cellulitis of left lower limb; N17.9 Acute kidney failure, unspecified; I74.3 Embolism and thrombosis of arteries of the lower extremities; J44.1 Chronic obstructive pulmonary disease with (acute) exacerbation; E11.22 Type 2 diabetes mellitus with diabetic chronic kidney disease; E11.51 Type 2 diabetes mellitus with diabetic peripheral angiopathy without gangrene; D63.1 Anemia in chronic kidney disease; E66.9 Obesity, unspecified; E78.5 Hyperlipidemia, unspecified; I25.10 Atherosclerotic heart disease of native coronary artery without angina pectoris; I27.20 Pulmonary hypertension, unspecified; I35.0 Nonrheumatic aortic (valve) stenosis; I48.91 Unspecified atrial fibrillation; J45.909 Unspecified asthma, uncomplicated; K21.9 Gastro-esophageal reflux disease without esophagitis; N18.9 Chronic kidney disease, unspecified; R09.02 Hypoxemia; Z87.442 Personal history of urinary calculi; Z91.018 Allergy to other foods; Z95.0 Presence of cardiac pacemaker; Z95.5 Presence of coronary angioplasty implant and graft; E11.40 Type 2 diabetes mellitus with diabetic neuropathy, unspecified; E11.621 Type 2 diabetes mellitus with foot ulcer; L97.529 Non-pressure chronic ulcer of other part of left foot with unspecified severity; E83.42 Hypomagnesemia; I27.21 Secondary pulmonary arterial hypertension; I48.0 Paroxysmal atrial fibrillation; K57.30 Diverticulosis of large intestine without perforation or abscess without bleeding; M19.90 Unspecified osteoarthritis, unspecified site
CPT/HCPCS: 36415; 36600; 70030-TC; 71045; 82803; 83735; 84100; 85025; 93307; 94640; 94660; 94664; 94760; 97535-GO-CO; J1644; J1815; J3535; J8499